=== PATIENT | female | born 1995 | race African-American/Black ===

== ENCOUNTER 2016-09-11 20:29 | Emergency (ER) | payer MEDICAID ==
[~2016-09-11] VITALS: Ht 180.3 cm; Wt 89.8 kg
[2016-09-11] MEDS ORDERED: NKM (20:48)
[2016-09-11 20:51] VITALS: BP 119/76
[2016-09-11 21:45] LABS: APPEARANCE,URINE VERY CLOUDY; KETONES,URINE NEGATIVE (NEGATIVE); NITRITE,URINE POSITIVE (NEGATIVE); PH,URINE 6 (4.5-8.0); UROBILINOGEN,URINE 1 MG/DL (0.0-1.0)
[2016-09-11 21:51] LABS: PROTEIN,URINE 1+ (NEGATIVE)
[2016-09-11 21:58] LABS: LEUKOCYTE ESTERASE ,URINE 2+ (NEGATIVE)
[2016-09-11 21:59] LABS: BACTERIA,URINE MANY /HPF; RBC,URINE 0-2 /HPF (0 - 2); SQUAMOUS EPITHELIAL CELL,UR MANY /LPF (NONE/OCC)
[2016-09-11] MEDS ORDERED: IBUPROFEN600 MG ORAL (22:00)
[2016-09-11] MEDS ORDERED: KEFLEX500 MG ORAL (22:00)
[2016-09-11 22:09] VITALS: BP 134/92
--- NOTE | 2016-09-12 | Emergency Room Report ---
History of Present Illness General Chief Complaint: Headache Present Illness HPI Patient is a 21-year-old female presented after gradual onset of increased headache. Patient gradual onset of symptoms. The patient had not been having any flank pain she had not been vomiting. She denied any dysuria. The patient having a small amount of nasal bleeding and nonproductive cough. She denied being . She had taken some Tylenol and had intermittent fever. Allergies: Coded Allergies: No Known Allergies (Unverified , 05/15/15) Patient History Last Menstrual Period: Aug Reviewed Nursing Documentation: PMH: Agreed, PSxH: Agreed Nursing Documentation-PMH Hx Neurological Problems: Yes - MIGRAINE Review of Systems All Other Systems: negative except mentioned in HPI Physical Exam Vital Signs Date Time Temp Pulse Resp B/P Pulse Ox O2 Delivery O2 Flow Rate FiO2 09/11/16 20:40 98.2 74 18 119/76 99 Room Air General Appearance: well appearing, no apparent distress, alert, GCS 15 Head: normocephalic, atraumatic ENT: hearing grossly normal, normal voice, other - scant nasal septal blood Neck: full range of motion, supple Respiratory: no respiratory distress, speaking full sentences Gastrointestinal: normal inspection Genitourinary: no CVA tenderness Musculoskeletal: normal inspection, digits/nails normal, no calf tenderness Neurologic: normal inspection, alert, oriented x3, responsive, normal gait Psychiatric: mood/affect normal Skin: no rash Medical Decision Making Diagnostic Impression: Primary Impression: Headache Additional Impression: UTI (urinary tract infection) ER Course Patient presented for headache. Differential diagnoses included but was not limited to skull fracture, urinary tract infection, subarachnoid hemorrhage, meningitis, aneurysm, mass lesion, intracranial hemorrhage. Patient's benign exam and does not appear to require any further imaging or laboratory testing at this time. Urine test was negative. Urinalysis showed evidence of urinary tract infection. Patient given prescription for antibiotics and ibuprofen. Labs Test 09/11/16 21:30 Urine Color Pale yellow Urine Appearance Very cloudy Urine pH 6 (4.5-8.0) Urine Specific [place] 1.015 (1.005-1.035) Urine Protein 1+ (NEGATIVE) Urine Glucose (UA) Negative (NEGATIVE) Urine Ketones Negative (NEGATIVE) Urine Occult Blood 1+ (NEGATIVE) Urine Nitrite Positive (NEGATIVE) Urine Bilirubin Negative (NEGATIVE) Urine Urobilinogen 1 MG/DL (0.0-1.0) Urine Leukocyte Esterase 2+ (NEGATIVE) Urine RBC 0-2 /HPF (0 - 2) Urine WBC 5-10 /HPF (0 - 2) Urine Squamous Epithelial Cells Many /LPF (NONE/OCC) Urine Bacteria Many /HPF (NONE) Urine HCG, Qualitative Negative Last Vital Signs Date Time Temp Pulse Resp B/P Pulse Ox O2 Delivery O2 Flow Rate FiO2 09/11/16 22:09 98.2 78 18 134/92 100 Room Air Status: improved Disposition: HOME, SELF-CARE Condition: Stable Scripts Ibuprofen* (MOTRIN*) 600 Mg Tablet 600 MG ORAL Q8H Y for For Pain, #30 TAB 0 Refills Prov: Ky Chopra 09/11/16 Cephalexin* (KEFLEX*) 500 Mg Capsule 500 MG ORAL Q6H, #28 CAP 0 Refills Prov: Ky Chopra 09/11/16 Referrals: [facility],REF (PCP) Departure Forms: Return to Work Return to Work in (Days): 2 Patient Instructions: General Headache Without Cause Ky Chopra Sep 12, 2016 00:00
== END 2016-09-11 22:09 | disposition home or self-care (01) ==
LOC: EMR 21:15
DX: R51 Headache (principal); N39.0 Urinary tract infection, site not specified
CPT/HCPCS: 81003; 81025; 87086; 87181; 99284

== ENCOUNTER 2016-09-25 20:55 | Emergency (ER) | payer MEDICAID ==
[~2016-09-25 20:55] MED LIST: IBUPROFEN600 MG ORAL; KEFLEX500 MG ORAL; NKM
--- NOTE | 2016-09-25 22:19 | Emergency Room Report ---
History of Present Illness General Chief Complaint: To Be Triaged Present Illness Allergies: Coded Allergies: No Known Allergies (Unverified , 05/15/15) Nursing Documentation-PMH Hx Neurological Problems: Yes - MIGRAINE Medical Decision Making ER Course Patient was not seen in the emergency room Left before evaluation Patient left after 20 minutes of waiting in the waiting room Was called multiple times At this time left without being seen Status: other Disposition: LEFT W/OUT BEING SEEN Condition: Unknown Referrals: NOT CHOSEN [facility]/,REFERRING (PCP) LAURA BAUM D.O. Sep 25, 2016 22:19
== END 2016-09-25 21:32 | disposition left against medical advice (07) ==
LOC: EMR 21:20
DX: Z53.21 Procedure and treatment not carried out due to patient leaving prior to being seen by health care provider (principal)

== ENCOUNTER 2016-10-22 12:21 | Emergency (ER) | payer MEDICAID ==
[~2016-10-22] VITALS: Ht 180.3 cm; Wt 81.6 kg
[2016-10-22] MEDS ORDERED: AMOXICILLIN500 MG ORAL (13:04)
[2016-10-22] MEDS ORDERED: TESSALON PERLE100 MG ORAL (13:04)
[2016-10-22] MEDS ORDERED: IBUPROFEN600 MG ORAL (13:04)
--- NOTE | 2016-10-22 13:13 | Emergency Room Report ---
History of Present Illness General Chief Complaint: Sore Throat Source: Patient Present Illness [facility] The patient is a 21-year-old female presenting for sore throat and ear pain with subjective fevers which began 5 days prior. Pain is described as an 8/10 dull ache to the back of the throat and is worse with swallowing. Patient is to productive cough with green to yellow sputum. Pain does not radiate. She has not tried any medications. She denies any sick contacts or recent travel. The patient denies any other symptoms including N, V, night sweats, hemoptysis, SOB, wheezing, RIOS, dizziness Allergies: Coded Allergies: No Known Allergies (Unverified , 05/15/15) Patient History Past Medical History: see triage record Pertinent Family History: none Last Menstrual Period: 10/2016 Now: No Reviewed Nursing Documentation: PMH: Agreed, PSxH: Agreed Nursing Documentation-PMH Past Medical History: No Stated History Hx Neurological Problems: Yes - MIGRAINE Review of Systems All Other Systems: negative except mentioned in HPI Physical Exam Vital Signs Date Time Temp Pulse Resp B/P Pulse Ox O2 Delivery O2 Flow Rate FiO2 10/22/16 12:29 98.4 55 14 109/57 94 Room Air Sp02 EP Interpretation: reviewed, normal General Appearance: no apparent distress, alert, GCS 15, non-toxic Head: normocephalic, atraumatic Eyes: bilateral eye PERRL, bilateral eye normal inspection ENT: hearing grossly normal, no angioedema, normal voice, TMs + canals normal, uvula midline, tonsillar swelling, pharyngeal erythema Neck: full range of motion, supple/symm/no masses Respiratory: chest non-tender, lungs clear, normal breath sounds, no wheezing, speaking full sentences Cardiovascular #1: regular rate, rhythm, no edema Musculoskeletal: back normal, gait/station normal, normal range of motion, non- tender Neurologic: alert, oriented x3, responsive, motor strength/tone normal, sensory intact, speech normal Psychiatric: judgement/insight normal, memory normal, mood/affect normal, no suicidal/homicidal ideation Skin: normal color, no rash, warm/dry, well hydrated Lymphatic: adenopathy Medical Decision Making PA Attestation Dr. Adorno is my supervising physician. Patient management was discussed with my supervising physician Diagnostic Impression: Primary Impression: Pharyngitis, acute Qualified Codes: J02.9 - Acute pharyngitis, unspecified ER Course The patient is a 21-year-old female presenting for sore throat and ear pain with subjective fevers Differential diagnosis include but not limited to pharyngitis, sinusitis, AOM, bronchitis, PNA Physical exam: Vitals within normal limits. Afebrile. No apparent distress HEENT exam: There is bilateral tonsillar edema, erythema. Uvula midline. Moist mucous membranes. There is bilateral cervical lymphadenopathy. Lungs are clear to auscultation bilaterally Skin is warm and dry. No rash The patient will be discharged home with a prescription for amoxicillin and is given ER precautions. Patient will followup with primary care Last Vital Signs Date Time Temp Pulse Resp B/P Pulse Ox O2 Delivery O2 Flow Rate FiO2 10/22/16 12:29 98.4 55 14 109/57 94 Room Air Status: improved Disposition: HOME, SELF-CARE Condition: Improved Scripts Benzonatate* (TESSALON PERLE*) 100 Mg Capsule 100 MG ORAL THREE TIMES A DAY, #15 PERLE Prov: MATT BOYLE.A. 10/22/16 Amoxicillin* (AMOXIL*) 500 Mg Capsule 500 MG ORAL Q12HR, #20 CAP Prov: MATT BOYLE P.A. 10/22/16 Ibuprofen* (MOTRIN*) 600 Mg Tablet 600 MG ORAL Q8H Y for For Pain, #30 TAB 0 Refills Prov: MATT BOYLE.A. 10/22/16 Patient Instructions: Tonsillitis, Sore Throat Additional Instructions: I discussed my findings with the patient. All questions and concerns have been answered. Treatment and medication compliance have been addressed. I advised the patient that they need to follow up with PMD in 3-5 days. Return to ED if pain remains or worsens, cough worsens or remains, you notice blood in your sputum, you notice wheezing, you experience a fever, or if needed for any reason. Patient verbalized understanding of discharge instructions. MATT BOYLE Oct 22, 2016 13:13
[2016-10-22 13:14] VITALS: BP 107/71
== END 2016-10-22 13:14 | disposition home or self-care (01) ==
LOC: EMR 13:04
DX: J02.9 Acute pharyngitis, unspecified (principal)
CPT/HCPCS: 99284

== ENCOUNTER 2016-12-06 19:22 | Emergency (ER) | payer MEDICAID ==
[~2016-12-06] VITALS: Ht 175.3 cm; Wt 96.6 kg
[~2016-12-06 19:22] MED LIST changes: +AMOXICILLIN500 MG ORAL; +TESSALON PERLE100 MG ORAL
--- NOTE | 2016-12-06 19:54 | Emergency Room Report ---
History of Present Illness General Chief Complaint: Lower Back Pain or Injury Source: Patient Present Illness HPI Patient presents with complaints of left hand pain the pain is to the lateral hand when she puts her hand down an extensive forward Patient also complains of low back pain headache Denies any chest pain or shortness of breath denies any vomiting Patient denies any trauma Denies any dysuria or frequency Symptoms ongoing today Denies any visual changes denies any neck pain or photophobia Allergies: Uncoded Allergies: BANANAS (Allergy, Unknown, 12/06/16) Patient History Past Medical History: see triage record Pertinent Family History: none Last Menstrual Period: 2 months ago Now: No - IUD Reviewed Nursing Documentation: PMH: Agreed, PSxH: Agreed Nursing Documentation-PMH Past Medical History: No History, Except For Hx Neurological Problems: Yes - MIGRAINE Review of Systems All Other Systems: negative except mentioned in HPI Physical Exam Vital Signs Date Time Temp Pulse Resp B/P Pulse Ox O2 Delivery O2 Flow Rate FiO2 12/06/16 19:27 98.4 68 16 106/63 98 Room Air Sp02 EP Interpretation: reviewed, normal General Appearance: well appearing, no apparent distress Head: normocephalic, atraumatic Eyes: bilateral eye EOMI, bilateral eye PERRL ENT: hearing grossly normal, normal pharynx, TMs + canals normal, uvula midline Neck: full range of motion, supple, no meningismus, no bony tend Respiratory: lungs clear, normal breath sounds, no rhonchi, no respiratory distress, no retraction, no accessory muscle use Cardiovascular #1: normal peripheral pulses, regular rate, rhythm, no edema, no gallop, no JVD, no murmur Gastrointestinal: normal bowel sounds, non tender, soft, no mass, no organomegaly, non-distended, no guarding, no hernia, no pulsatile mass, no rebound Genitourinary: no CVA tenderness Musculoskeletal: other - Patient has discomfort out of proportion to the exam on the lateral left hand and a slight touch causes discomfort no obvious erythema no swelling, , Neurologic: oriented x3, responsive, citizen participation specialist III-XII nml as tested, sensory intact Psychiatric: mood/affect normal Skin: normal color, no rash, warm/dry, palpation normal Lymphatic: normal inspection, no adenopathy Procedures Splinting Progress Volar splint applied to the left hand and wrist, it does immobilize the area well Patient remains neurovascularly intact on recheck by myself Medical Decision Making Diagnostic Impression: Primary Impression: Hand sprain Additional Impression: UTI (urinary tract infection) ER Course Multiple differentials considered Including but not limited to infection is, metabolic, bony abnormality Patient had imaging done which was negative of the left hand urine sample does show ongoing UTI Looking at previous microbiology patient was placed on Cipro And will have initial conservative outpatient trial Labs Test 12/06/16 19:50 Urine Color Pale yellow Urine Appearance Clear Urine pH 8 (4.5-8.0) Urine Specific [place] 1.015 (1.005-1.035) Urine Protein Negative (NEGATIVE) Urine Glucose (UA) Negative (NEGATIVE) Urine Ketones Negative (NEGATIVE) Urine Occult Blood Negative (NEGATIVE) Urine Nitrite Negative (NEGATIVE) Urine Bilirubin Negative (NEGATIVE) Urine Urobilinogen Normal MG/DL (0.0-1.0) Urine Leukocyte Esterase 3+ (NEGATIVE) Urine RBC 2-4 /HPF (0 - 2) Urine WBC 15-20 /HPF (0 - 2) Urine Squamous Epithelial Cells Few /LPF (NONE/OCC) Urine Amorphous Sediment Few /LPF (NONE) Urine Bacteria Moderate /HPF (NONE) Urine Trichomonas Few /HPF (NONE) Urine HCG, Qualitative Negative Other X-Ray Diagnostic Results Other X-Ray Diagnostic Results : EP Interpretation: Yes Findings: no fractures, no dislocation, no soft tissue swelling Number of Views: 3 - left hand Last Vital Signs Date Time Temp Pulse Resp B/P Pulse Ox O2 Delivery O2 Flow Rate FiO2 12/06/16 19:27 98.4 68 16 106/63 98 Room Air Status: improved Disposition: HOME, SELF-CARE Condition: Improved Scripts Ciprofloxacin Hcl* (CIPROFLOXACIN HCL*) 500 Mg Tablet 500 MG ORAL Q12H, #14 TAB 0 Refills Prov: LAURA BAUM.O. 12/06/16 Ibuprofen* (MOTRIN*) 600 Mg Tablet 600 MG ORAL Q8H Y for For Pain, #20 TAB 0 Refills Prov: LAURA BAUM.O. 12/06/16 Additional Instructions: Patient is provided with the discharge instructions notified to follow up with primary doctor in the next 2-3 days otherwise return to the er with any worsening symptoms. Please note that this report is being documented using [employer] technology. This can lead to erroneous entry secondary to incorrect interpretation by the dictating instrument. LAURA BAUM D.O. December 06, 2016 19:53
[2016-12-06 20:00] VITALS: BP 115/76
[2016-12-06 20:13] LABS: APPEARANCE,URINE CLEAR; KETONES,URINE NEGATIVE (NEGATIVE); LEUKOCYTE ESTERASE ,URINE 3+ (NEGATIVE); NITRITE,URINE NEGATIVE (NEGATIVE); PH,URINE 8 (4.5-8.0); PROTEIN,URINE NEGATIVE (NEGATIVE); UROBILINOGEN,URINE NORMAL MG/DL (0.0-1.0)
[2016-12-06 20:39] LABS: BACTERIA,URINE MODERATE /HPF; SQUAMOUS EPITHELIAL CELL,UR FEW /LPF (NONE/OCC); TRICHOMONAS,URINE FEW /HPF; WBC,URINE 15-20 /HPF (0 - 2)
[2016-12-06 20:40] LABS: AMORPHOUS SEDIMENT,UR FEW /LPF
[2016-12-06] MEDS ORDERED: CIPROFLOXACIN500 M2 ORAL (20:47)
[2016-12-06] MEDS ORDERED: IBUPROFEN600 MG ORAL (20:47)
[2016-12-06 21:00] VITALS: BP 115/76
--- NOTE | 2016-12-07 10:11 | Diagnostic Imaging Report ---
Indication: PAIN Technique: 3 views left hand Comparison: none Findings: Small osseous fragment is seen on the ulnar aspect of the fifth metacarpal phalangeal joint. This appears to be well-corticated, probably old. No definite acute fractures. No dislocations. The joint spaces are preserved. Impression: No acute bony trauma
== END 2016-12-06 21:00 | disposition home or self-care (01) ==
LOC: EMR 20:05
DX: S63.92XA Sprain of unspecified part of left wrist and hand, initial encounter (principal); X50.9XXA Other and unspecified overexertion or strenuous movements or postures, initial encounter; Y93.67 Activity, basketball; Y92.9 Unspecified place or not applicable; N39.0 Urinary tract infection, site not specified; Z91.018 Allergy to other foods
CPT/HCPCS: 29125; 29240; 81003; 81025; 87086; 87181; 99284